=== PATIENT | female | born 1965 | race Caucasian/White ===

== ENCOUNTER 2018-06-08 12:47 | Emergency (ER) | payer SELFPAY ==
--- NOTE | 2018-06-08 13:24 | RAD ---
[facility] knee 4 views: 06/08/2018 COMPARISON: None HISTORY: Right knee pain and swelling. FINDINGS: There is mild medial compartment narrowing with osteophyte formation of the medial femoral condyle and medial tibial plateau. Probable trace knee joint fluid. No displaced fracture or evidence of dislocation seen. IMPRESSION: Mild medial compartment degenerative change and probable trace knee joint effusion. If cl inically warranted, MRI of right knee recommended.
[2018-06-08] MEDS ORDERED: Ketorolac Tromethamine 60 MG/2 ML VIAL ONE (13:36)
== END 2018-06-08 13:55 | disposition home or self-care (01) ==
LOC: NAV ERS 12:47
DX: M17.11 Unilateral primary osteoarthritis, right knee (principal); I10 Essential (primary) hypertension; F17.210 Nicotine dependence, cigarettes, uncomplicated
CPT/HCPCS: 96372; J1885